=== PATIENT | female | born 1995 | race Asian ===

== ENCOUNTER 2018-08-22 08:23 | Emergency (ER) | payer MEDICAID ==
[2018-08-22 08:59] LABS: URINE BLOOD (Dip) POC 3+ (NEGATIVE); URINE GLUCOSE (Dip) POC Negative (NEGATIVE); URINE KETONES (Dip) POC Negative (NEGATIVE); URINE LEUKOCYTE EST (Dip) POC Negative (NEGATIVE); URINE NITRITE (Dip) POC Negative (NEGATIVE); URINE TOTAL PROTEIN POC 2+ (NEGATIVE)
[2018-08-22 08:59] LABS: URINE PH (Dip) POC 5.5 (5.0-8.5)
== END 2018-08-22 10:14 | disposition home or self-care (01) ==
LOC: FTE 08:23
DX: R10.84 Generalized abdominal pain (principal); R40.2412 Glasgow coma scale score 13-15, at arrival to emergency department
CPT/HCPCS: 81003; 81025; 99282